=== PATIENT | male | born 1995 | race Two or more races ===

== ENCOUNTER 2025-03-13 15:47 | Emergency (ER) | payer OTHER ==
[~2025-03-13] VITALS: Ht 185.4 cm; Wt 79.4 kg
[2025-03-13] MEDS ORDERED: PANTOPRAZOLE SODIUM 40 MG/VIAL VIAL IV ONE (16:45)
[2025-03-13] MEDS ORDERED: CIPROFLOXACIN IN 5 % DEXTROSE 400 MG/200 ML PIGGYBAG IV ONE (16:45)
[2025-03-13] MEDS ORDERED: ONDANSETRON HCL 2 MG/ML VIAL IV ONE (16:45)
[2025-03-13] MEDS ORDERED: 0.9 % SODIUM CHLORIDE 1,000 ML IV ONE ×2 (16:45→17:30)
[2025-03-13 17:05] LABS: BASO % 0.4 % (0.1-1.2); EOS # 0.05 (0.04-0.54); EOS % 0.3 % (0.7-7.0); LYMPH # 1.51 (1.18-3.74); LYMPH % 8.4 % (19.3-53.1); MEAN PLATELET VOLUME 8.90 fl (9.4-12.4); MONO # 0.85 (0.24-0.82); MONO % 4.7 % (4.7-12.5); NEUT # 15.41 (1.56-6.13); NEUT % 85.9 % (34.0-71.1); RED CELL DISTRIBUTION WIDTH 11.9 % (11.6-14.4)
[2025-03-13 17:25] LABS: INR 1.03
[2025-03-13 17:28] LABS: ALT/SGPT 32.0 U/L (12-78); AST/SGOT 17.0 U/L (15-37); BILIRUBIN TOTAL 0.89 mg/dL (0.3-1.2); BUN CREA RATIO 19.0 (7.0-25.0); CREATININE SERUM 1.04 mg/dL (0.70-1.30); GFR 83.85; GLOBULINA 3.1 G/DL (2.4-3.5); GLUCOSE FASTING 103.0 mg/dL (65-100); OSMOLALITY SERUM 286.0 MOSM/KG (275-295)
[2025-03-13 19:05] LABS: URINE APPEARANCE Clear; URINE BILIRRUBIN Negative (NEGATIVE); URINE BLOOD Negative; URINE COLOR Yellow; URINE GLUCOSE Negative (NEGATIVE); URINE LEUKOCYTE Negative; URINE NITRATE Negative; URINE PROTEIN Trace (NEGATIVE); URINE UROBILINOGEN 1.0 E.U./dl
[2025-03-13 19:08] LABS: URINE BACTERIA 8.3 uL (0.0-1933); URINE RBC 2.3 uL (0.0-20.8); URINE WBC 6.9 uL (0.0-23.2)
[2025-03-13 19:17] LABS: URINE CAST 0.00 uL (0.0-1.40); URINE EPITHELIAL CELLS 1.3 uL (0.0-38.8); URINE KETONE 40 (NEGATIVE)
[2025-03-13 21:04] LABS: BASO % 0.4 % (0.1-1.2); EOS # 0.05 (0.04-0.54); EOS % 0.4 % (0.7-7.0); LYMPH # 2.37 (1.18-3.74); LYMPH % 18.7 % (19.3-53.1); MEAN PLATELET VOLUME 9.10 fl (9.4-12.4); MONO # 0.86 (0.24-0.82); MONO % 6.8 % (4.7-12.5); NEUT # 9.30 (1.56-6.13); NEUT % 73.5 % (34.0-71.1); RED CELL DISTRIBUTION WIDTH 12.0 % (11.6-14.4)
[2025-03-13] MEDS ORDERED: PROTONIX20 MG PO (21:29)
[2025-03-13] MEDS ORDERED: INTESTINEX680 M1 PO (21:29)
[2025-03-13] MEDS ORDERED: METRONIDAZOLE500 MG PO (21:29)
[2025-03-13] MEDS ORDERED: CIPRO500 MG PO (21:29)
== END 2025-03-13 21:50 | disposition home or self-care (01) ==
LOC: ER 15:47
PROVIDERS: General Practice
DX: K52.9 Noninfective gastroenteritis and colitis, unspecified (principal); K92.0 Hematemesis